=== PATIENT | female | born 1955 | race Caucasian/White ===

== ENCOUNTER 2021-02-22 14:49 | Outpatient (REF) | payer MEDICARE, OTHER, SELFPAY ==
--- NOTE | ~2021-02-22 | MR_ITS ---
EXAMINATION: MR LUMBAR SPINE WITHOUT CONTRAST CLINICAL INFORMATION: Lower back pain. COMPARISON: None. TECHNIQUE: MRI of the lumbar spine was obtained using routine sequences without contrast. FINDINGS: VERTEBRAL BODIES AND PARASPINAL STRUCTURES: The lumbar lordosis is maintained. Anterior loss of superior endplate vertebral body height at T12 without associated marrow edema. Findings are consistent with a chronic compression deformity. No additional loss of vertebral body height. Loss of intervertebral disc height with disc desiccation at L2-L5. No marrow edema to suggest acute osseous injury. The visualized paraspinal soft tissues are unremarkable. CONUS MEDULLARIS AND CAUDA EQUINA: Normal, terminating at the level of the inferior endplate of L1. SPINAL LEVELS: T12-L1: Minimal disc bulge with left-sided annular fissuring. No significant central canal or neural foraminal stenosis. L1-L2: Shallow left subarticular disc protrusion with posterior annular fissuring. Bilateral facet arthropathy. Minimal left neural foraminal stenosis. L2-L3: Broad-based disc bulge with bilateral facet arthropathy and thickening of the ligamentum flavum causing [id number] bilateral neural foraminal stenosis. L3-L4: Minimal broad-based disc bulge with bilateral facet arthropathy and thickening of the ligamentum flavum causing mild bilateral neural foraminal stenosis. L4-L5: Broad-based disc bulge with a shallow posterior central disc protrusion and posterior annular fissuring. Bilateral facet arthropathy and thickening of the ligamentum flavum. Mild bilateral neural foraminal stenosis. L5-S1: No significant disc bulge. No central canal or neural foraminal stenosis. MR/MR lumbar spine wo con IMPRESSION: 1. Chronic compression deformity of T12. No marrow edema to suggest acute osseous injury. 2. Shallow left subarticular disc protrusion at L1-L2 with annular fissuring and bilateral facet arthropathy causing minimal left neural foraminal stenosis. 3. Broad-based disc bulge and bilateral facet arthropathy at L2-L3 causing [id number] bilateral neural foraminal stenosis. 4. Minimal disc bulge at L3-L4 bilateral facet arthropathy and thickening of the ligamentum flavum causing mild bilateral neural foraminal stenosis. 5. Broad-based disc bulge at L4-L5 with a shallow posterior central disc protrusion and annular fissuring as well as bilateral facet arthropathy and thickening of the ligamentum flavum causing mild bilateral neural foraminal stenosis.
== END 2021-02-22 14:50 | disposition home or self-care (01) ==
LOC: HO.MRI 14:49
PROVIDERS: Visit Provider Physician Assistant
DX: M54.50 Low back pain, unspecified (principal)
CPT/HCPCS: 72148

== ENCOUNTER 2021-04-26 23:53 | Emergency (ER) | payer MEDICARE, OTHER, SELFPAY ==
--- NOTE | ~2021-04-26 | XR_ITS ---
EXAMINATION: XR CHEST CLINICAL INFORMATION: Chest pain COMPARISON: 02.10.2016 TECHNIQUE: Frontal view of the chest was obtained. FINDINGS: Normal symmetric lung volumes. No parenchymal consolidation. No pleural effusion. No pneumothorax. Cardiomediastinal silhouette and pulmonary vascularity are within normal limits. Aorta is atherosclerotic. No acute osseous abnormalities. XR/XR chest 1V IMPRESSION: No acute findings.
[2021-04-26 23:55] VITALS: BP 142/82; PULSE 68; RESP 18; TEMP 36.3; O2SAT 99; BMI 22.1
--- NOTE | 2021-04-26 23:59 | ECG_ITS ---
Test Reason : CHEST PAIN Blood Pressure : / mmHG Vent. Rate : 065 BPM Atrial Rate : 065 BPM P-R Int : 146 ms QRS Dur : 066 ms QT Int : 372 ms P-R-T Axes : 049 020 108 degrees QTc Int : 386 ms Normal sinus rhythm Cannot rule out Anterior infarct , age undetermined T wave abnormality, consider lateral ischemia Abnormal ECG When compared with ECG of 11-FEB-2016 00:48, T wave inversion now evident in Lateral leads QT has shortened Referred By: Generic ED Physician Electronically Signed By:DAI SWAIN MD
[2021-04-27] VITALS: BP 142/54; PULSE 67; RESP 16; O2SAT 97
--- NOTE | 2021-04-27 | ECG_ITS ---
Test Reason : REPEAT Blood Pressure : / mmHG Vent. Rate : 066 BPM Atrial Rate : 066 BPM P-R Int : 148 ms QRS Dur : 068 ms QT Int : 408 ms P-R-T Axes : 051 025 103 degrees QTc Int : 427 ms Normal sinus rhythm Nonspecific T wave abnormality Abnormal ECG When compared with ECG of 27-APR-2021 00:03, No significant change was found Referred By: Loren Bal Electronically Signed By:DAI SWAIN MD
[2021-04-27 00:22] LABS: Basophils Absolute Auto 0.1 X10*3/uL (0.0-0.2); Basophils Percent Auto 1.2 % (0-2); Eosinophils Absolute Auto 0.2 X10*3/uL (0.0-0.4); Eosinophils Percent Auto 3.2 % (0-4); Hematocrit 42.4 % (37.0-47.0); Hemoglobin 14.6 g/dl (12.0-16.0); Imm Gran Abs Auto 0.03 X10*3/uL (0.00-0.03); Imm Gran Pct Auto 0.4 % (0.0-0.4); Lymphocytes Absolute Auto 2.3 X10*3/uL (1.2-4.9); Lymphocytes Percent Auto 31.1 % (20-40); MANUAL DIFF FLAG NO; Mean Corpuscular HGB Conc 34.4 g/dl (31.0-35.0); Mean Corpuscular Hemoglobin 30.2 pg (27.0-33.0); Mean Corpuscular Volume 87.6 fL (80.0-98.0); Mean Platelet Volume 8.8 fL (9.4-12.3); Monocytes Absolute Auto 0.8 X10*3/uL (0.1-1.2); Monocytes Percent Auto 11.2 % (2-11); Neutrophils Absolute Auto 3.8 x10*3/uL (2.0-8.3); Neutrophils Percent Auto 52.9 % (45-73); Platelet Count 271 X10*3/uL (160-400); Red Blood Count 4.84 X10*6/uL (4.20-5.50); Red Cell Distribution Width 12.5 % (11.0-16.0); White Blood Count 7.3 X10*3/uL (4.8-10.8)
[2021-04-27 00:36] LABS: Anion Gap 14 (12-20); Blood Urea Nitrogen 16 mg/dL (9-16); Carbon Dioxide 27 mmol/L (22-29); Chloride 103 mmol/L (96-108); Creatinine Clr Calc Pharmacy 55.8; Estimated Glomerular Filt Rate > 60; Glucose Random 120 mg/dL (60-115); Potassium 3.6 mmol/L (3.3-5.1); Sodium 140 mmol/L (135-145)
[2021-04-27 00:44] LABS: Troponin-I High Sensitivity < 3.5 ng/L (<3.5-17.0)
[2021-04-27 00:58] VITALS: PULSE 63
[2021-04-27 03:25] LABS: Troponin-I High Sensitivity < 3.5 ng/L (<3.5-17.0)
[2021-04-27 03:27] VITALS: BP 130/78; PULSE 56; RESP 16; TEMP 36.7; O2SAT 95
[2021-04-27 06:30] VITALS: BP 123/73; PULSE 65; RESP 14; TEMP 36.7; O2SAT 95
--- NOTE | 2021-04-27 06:35 | ED.CHESTPAIN ---
HPI - Chest Pain General Chief Complaint: Chest Pain Stated Complaint: Chest discomfort Time Seen by Provider: 04/27/21 06:35 Source: patient Mode of arrival: ambulatory Limitations: no limitations History of Present Illness MD complaint: chest pain Onset (ago): day(s) (last night 11pm) Timing of current episode: constant Prior episodes: No Onset: during rest Pain location: substernal Pain radiation: neck Severity: moderate Quality: other (pressure) Relieving factors: nothing Exacerbating factors: nothing Associated symptoms: nausea Treatment prior to arrival: none Related Data Allergies Allergy/AdvReac Type Severity Reaction Status Date / Time meperidine [From DEMEROL] Allergy Unknown VOMIT Unverified 01/27/20 19:09 Review of Systems Review of Systems: Constitutional : No Weight loss, No Fever, No Chills ENT/Mouth : No sore throat, No Rhinorrhea Eyes: No Eye Pain, No Swelling Cardiovascular : pos Chest Pain, no SOB, no Dyspnea on Exertion, No Orthopnea, No Edema, No Palpitations Respiratory : No Cough, No Sputum Gastrointestinal : pos Nausea, No Vomiting, No Diarrhea, No abdominal Pain, No Hematochezia, No Melena Genitourinary : No Dysuria, No Urinary Frequency Musculoskeletal : No joint pain, No Myalgias, No Joint Swelling Skin : No Skin Lesions, No rash Neuro : No Weakness, No Numbness, No Dizziness, No Headache Psych : No Anxiety/Panic, No Depression Heme/Lymph: No Bruising, No Lymphadenopathy Endocrine : No Polyuria, No Polydipsia All other systems reviewed and are negative [facility] Past Medical History Medical History Neuropathy Social History Social History Alcohol intake: unknown Patient Tobacco Use Status: Never used Tobacco Use of substances other than those prescribed or required for medical reasons: Unknown Advance Directives: No Advance Directives Information Provided: No Physical Exam Vital Signs: Vital Signs: Last Vital Signs Temp 98.0 F 04/27/21 06:30 Pulse 66 04/27/21 08:09 Resp 16 04/27/21 08:09 BP 117/75 04/27/21 08:09 Pulse Ox 96 04/27/21 08:09 BMI result Body Mass Index 22.1 Appearance: Alert. Oriented X3. No acute distress. Eyes: Pupils equal, round and reactive to light. ENT: Pharynx normal. Neck: Normal inspection. Neck supple. CVS: Normal heart rate and rhythm. Pulses normal. Respiratory: No respiratory distress. Breath sounds normal. Abdomen: Soft and non-tender. Skin: Skin warm and dry. Normal skin color. Normal skin turgor. Extremities: No lower extremity edema. No calf ttp Neuro: Oriented X 3. No motor deficit. No sensory deficit. Course Course Course Narrative: ddimer negative, trop negative x 3. nonspecific EKG after deeper review of old EKGs EKG unchanged - after review of EKgs patient did have t wave inversions and nonspecific as well as flattened t waves noted in 2016 she has a negative ddimer 3 negative troponins - doubt ACS at this time. feels better stable for DC MDM - Chest Pain MDM Narrative Medical decision making narrative: 65 yo female with hx of neuropathy non-smoker here with c/o onset of substernal chest pressure onset at 11pm last night while at rest felt nauseated pain radiated to her jaw at this time will obtain troponin x 2, ddimer, EKG x 2, has no ACS risk factors does not know of any family history. At this time she has no risk factors for PE. No abdominal pain. May need to discuss with cardiology given new T wave inversions and chest pain Lab Data Result diagrams: 04/27/21 00:10 04/27/21 00:10 Labs: Lab Results 04/27/21 04/27/21 04/27/21 Range/Units 00:10 00:10 00:10 WBC 7.3 (4.8-10.8) X10*3/uL RBC 4.84 (4.20-5.50) X10*6/uL Hgb 14.6 (12.0-16.0) g/dl Hct 42.4 (37.0-47.0) % MCV 87.6 (80.0-98.0) fL MCH 30.2 (27.0-33.0) pg MCHC 34.4 (31.0-35.0) g/dl RDW 12.5 (11.0-16.0) % Plt Count 271 (160-400) X10*3/uL MPV 8.8 L (9.4-12.3) fL Immature Gran % (Auto) 0.4 (0.0-0.4) % Neut % (Auto) 52.9 (45-73) % Lymph % (Auto) 31.1 (20-40) % Jewell % (Auto) 11.2 H (2-11) % Eos % (Auto) 3.2 (0-4) % Baso % (Auto) 1.2 (0-2) % Lymph # (Auto) 2.3 (1.2-4.9) X10*3/uL Jewell # (Auto) 0.8 (0.1-1.2) X10*3/uL Eos # (Auto) 0.2 (0.0-0.4) X10*3/uL Baso # (Auto) 0.1 (0.0-0.2) X10*3/uL Abs Immat Gran (auto) 0.03 (0.00-0.03) X10*3/uL Absolute Neuts (auto) 3.8 (2.0-8.3) x10*3/uL Absolute Nucleated RBC 0.000 (0.0-0.012) X10*3/uL Nucleated RBC % (auto) 0.0 (0.0-0.2) /100WBC D-Dimer High Sensitivty NG/ML Sodium 140 (135-145) mmol/L Potassium 3.6 (3.3-5.1) mmol/L Chloride 103 (96-108) mmol/L Carbon Dioxide 27 (22-29) mmol/L Anion Gap 14 (12-20) BUN 16 (9-16) mg/dL Creatinine 0.82 (0.5-1.4) mg/dL Estim Creat Clear Calc 55.8 Estimated GFR > 60 Random Glucose 120 H (60-115) mg/dL Calcium 10.0 (8.4-10.2) mg/dL Troponin I High Sens < 3.5 (<3.5-17.0) ng/L COVID-19 (VILLA) (Negative) COVID-19 Clin Com 04/27/21 04/27/21 04/27/21 Range/Units 02:53 07:16 07:16 WBC (4.8-10.8) X10*3/uL RBC (4.20-5.50) X10*6/uL Hgb (12.0-16.0) g/dl Hct (37.0-47.0) % MCV (80.0-98.0) fL MCH (27.0-33.0) pg MCHC (31.0-35.0) g/dl RDW (11.0-16.0) % Plt Count (160-400) X10*3/uL MPV (9.4-12.3) fL Immature Gran % (Auto) (0.0-0.4) % Neut % (Auto) (45-73) % Lymph % (Auto) (20-40) % Jewell % (Auto) (2-11) % Eos % (Auto) (0-4) % Baso % (Auto) (0-2) % Lymph # (Auto) (1.2-4.9) X10*3/uL Jewell # (Auto) (0.1-1.2) X10*3/uL Eos # (Auto) (0.0-0.4) X10*3/uL Baso # (Auto) (0.0-0.2) X10*3/uL Abs Immat Gran (auto) (0.00-0.03) X10*3/uL Absolute Neuts (auto) (2.0-8.3) x10*3/uL Absolute Nucleated RBC (0.0-0.012) X10*3/uL Nucleated RBC % (auto) (0.0-0.2) /100WBC D-Dimer High Sensitivty < 150 NG/ML Sodium (135-145) mmol/L Potassium (3.3-5.1) mmol/L Chloride (96-108) mmol/L Carbon Dioxide (22-29) mmol/L Anion Gap (12-20) BUN (9-16) mg/dL Creatinine (0.5-1.4) mg/dL Estim Creat Clear Calc Estimated GFR Random Glucose (60-115) mg/dL Calcium (8.4-10.2) mg/dL Troponin I High Sens < 3.5 < 3.5 (<3.5-17.0) ng/L COVID-19 (VILLA) (Negative) COVID-19 Clin Com 04/27/21 Range/Units 07:32 WBC (4.8-10.8) X10*3/uL RBC (4.20-5.50) X10*6/uL Hgb (12.0-16.0) g/dl Hct (37.0-47.0) % MCV (80.0-98.0) fL MCH (27.0-33.0) pg MCHC (31.0-35.0) g/dl RDW (11.0-16.0) % Plt Count (160-400) X10*3/uL MPV (9.4-12.3) fL Immature Gran % (Auto) (0.0-0.4) % Neut % (Auto) (45-73) % Lymph % (Auto) (20-40) % Jewell % (Auto) (2-11) % Eos % (Auto) (0-4) % Baso % (Auto) (0-2) % Lymph # (Auto) (1.2-4.9) X10*3/uL Jewell # (Auto) (0.1-1.2) X10*3/uL Eos # (Auto) (0.0-0.4) X10*3/uL Baso # (Auto) (0.0-0.2) X10*3/uL Abs Immat Gran (auto) (0.00-0.03) X10*3/uL Absolute Neuts (auto) (2.0-8.3) x10*3/uL Absolute Nucleated RBC (0.0-0.012) X10*3/uL Nucleated RBC % (auto) (0.0-0.2) /100WBC D-Dimer High Sensitivty NG/ML Sodium (135-145) mmol/L Potassium (3.3-5.1) mmol/L Chloride (96-108) mmol/L Carbon Dioxide (22-29) mmol/L Anion Gap (12-20) BUN (9-16) mg/dL Creatinine (0.5-1.4) mg/dL Estim Creat Clear Calc Estimated GFR Random Glucose (60-115) mg/dL Calcium (8.4-10.2) mg/dL Troponin I High Sens (<3.5-17.0) ng/L COVID-19 (VILLA) Negative (Negative) COVID-19 Clin Com See Note ECG Data ECG #1: Attestation: I personally reviewed and interpreted this ECG as follows: ECG interpretation date: 04/27/21 ECG interpretation time: 06:36 Interpretation: Rate: 65 Rhythm: NSR Tropic: normal Normal P waves. Normal DARIANA. Normal QRS complex. ST T wave : no GRAYSON, inverted I and aVL, nonspecific anterior leads qTC: normal prior studies: changed from 2016 The study has been interpreted contemporaneously by me. Rate: 66 Rhythm: NSR Tropic: normal Normal P waves. Normal DARIANA. Normal QRS complex. ST T wave : inverted lateral leads, anterior leads no GRAYSON qTC: normal prior studies: no change The study has been interpreted contemporaneously by me. . Discharge Plan Discharge Clinical Impression: Chest pain Qualifiers: Chest pain type: precordial pain Qualified Code(s): R07.2 - Precordial pain Patient Disposition: Home, Self-Care Instructions: Chest Pain (ED) Additional Instructions: return to ED for any worsening symptoms or concerns please follow up with your doctor for outpatient stress test given chest pain Referrals: Pillo Green MD [Primary Care Provider] - 3 days
[2021-04-27] MEDS: Lidocaine HCl Viscous 2 % 15 ML SOLUTION MUCOUS MEM (07:25)
[2021-04-27] MEDS: ondansetron HCL 4 MG/2 ML VIAL IVPUSH (07:25)
[2021-04-27 07:42] LABS: D Dimer High Sensitivity < 150 NG/ML
[2021-04-27 07:47] LABS: Troponin-I High Sensitivity < 3.5 ng/L (<3.5-17.0)
[2021-04-27 07:59] LABS: COVID-19 Test Negative (Negative); IDNOW Serial# 55D5AD1C
[2021-04-27 08:09] VITALS: BP 117/75; PULSE 66; RESP 16; O2SAT 96
[2021-04-27] MEDS: Morphine Sulfate 2 MG/ML CARTRIDGE IVPUSH (08:09)
[2021-04-27] MEDS: 0.9 % Sodium Chloride 1,000 ML 999 ML IV (08:09)
[2021-04-27 08:45] LABS: Magnesium 2.1 mg/dL (1.6-2.6)
== END 2021-04-27 08:52 | disposition home or self-care (01) ==
PROVIDERS: Emergency Provider Emergency Medicine; PCP Internal Medicine
DX: R07.2 Precordial pain (principal); R07.9 Chest pain, unspecified; M54.2 Cervicalgia; Z20.822 Contact with and (suspected) exposure to COVID-19; Z79.899 Other long term (current) drug therapy
CPT/HCPCS: 36415; 71045; 80048; 83735; 84484; 85025; 85379; 87635; 93005; 96361; 96374; 96375; 99285; J2270; J2405

== ENCOUNTER 2021-12-11 14:15 | Emergency (ER) | payer MEDICARE, SELFPAY ==
--- NOTE | ~2021-12-11 | XR_ITS ---
EXAMINATION: XR CHEST CLINICAL INFORMATION: Sternal pain and shortness of breath COMPARISON: Previous chest x-ray April 2021 TECHNIQUE: 2 views of the chest were obtained. FINDINGS: The cardiac and mediastinal contours are normal. The lungs are clear. There is no pleural effusion or pneumothorax. There is a sternal fracture appreciated on the lateral view. This is of uncertain age. No previous lateral chest x-ray is available for comparison. There is loss of height of several thoracic vertebral body suggestive of mild old compression fractures. There are postsurgical changes to the cervical spine. XR/XR chest 2V IMPRESSION: Sternal fracture of uncertain age. This could be better assessed with CT scan if clinically indicated. No evidence for acute disease in the chest. Multiple old thoracic vertebral body compression fractures.
--- NOTE | ~2021-12-11 | CT_ITS ---
EXAMINATION: CT CHEST WITHOUT CONTRAST CLINICAL INFORMATION: Sternal pain. Rule out sternal fracture. COMPARISON: None TECHNIQUE: Multidetector volumetric CT imaging of the chest was done. Axial MIP volume rendering provided. Sagittal and coronal reformatted images were obtained. This CT examination was performed using dose optimization techniques as appropriate, variously including the following: *Automated exposure control *Adjustment of mA and/or kV according to patient size (this includes techniques or standardized protocols for targeted exams where dose is matched to indication/reason for exam; i.e. extremities or head) *Use of iterative reconstruction technique DLP: 205 mGy-cm FINDINGS: DENTAL HYGIENIST: Cholecystectomy clips. Clear lungs. LUNGS: Reticular, linear platelike bands of atelectasis are evident in the bilateral lower lobes at the bases as well as the right middle lobe and lingula, consistent with pleural parenchymal scarring. No focal airspace consolidation. Central airways are clear. No suspicious noncalcified pulmonary nodules are identified. A few calcified granulomas are identified. MEDIASTINUM: The mediastinum is normal. Heart is normal in size. No hematoma. Thoracic aorta is normal in caliber. No adenopathy. Thyroid gland is unremarkable. PLEURA: There is no pleural effusion. No pleural mass or thickening. AXILLA: No lymphadenopathy. UPPER ABDOMEN: The right hepatic flexure is interposed between the liver and the right hemidiaphragm. Clinical statement clips are noted. There is dilatation of the common bile duct to 1.5 cm. Splenic granulomas are noted. No acute abnormalities in the upper abdomen. Colonic diverticula are noted. OSSEOUS STRUCTURES: There is a transverse fracture of the sternum between the level of the third and fourth ribs anteriorly. This fracture is subacute to chronic with bridging bone. Incomplete osseous remodeling. No additional fractures are identified in this region. There aren't old healed fractures of the left third and fourth ribs anterolaterally. Anterior wedge compression deformity of the T5 vertebral body appears chronic, involving the inferior endplate with 50 percent loss of vertebral body height. There are chronic superior endplate compression deformity is also evident at the T12 level with 25 percent loss of vertebral body height. No acute vertebral body fractures are identified. Hyperkyphosis is present in the lower lumbar spine. Mild multilevel degenerative spondylosis. CT/CT chest wo con IMPRESSION: 1. The sternal fracture is subacute to chronic. No acute sternal fractures are identified. Old healed left-sided rib fractures are also noted. 2. Chronic vertebral compression fractures at the T5 and T12 levels. No acute vertebral body fractures. 3. No acute pulmonary findings. 4. Interposition of the hepatic flexure between the right hemidiaphragm and the liver. This is typically incidental and of no clinical significance but can be symptomatic (Chilaiditi syndrome). Fleischner guidelines were followed.
[2021-12-11 15:52] VITALS: BP 132/77; PULSE 77; RESP 16; TEMP 36; O2SAT 98
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
[2021-12-11 22:39] VITALS: BP 146/89; PULSE 78; RESP 16; TEMP 36; O2SAT 97
[2021-12-11] MEDS: oxyCODONE HCl Immed Release 5 MG TABLET PO (22:48)
== END 2021-12-11 22:51 | disposition home or self-care (01) ==
PROVIDERS: Emergency Provider Internal Medicine; PCP Internal Medicine
DX: S13.4XXA Sprain of ligaments of cervical spine, initial encounter (principal); R07.9 Chest pain, unspecified; V47.1XXA Car passenger injured in collision with fixed or stationary object in nontraffic accident, initial encounter; Y93.89 Activity, other specified; Y92.410 Unspecified street and highway as the place of occurrence of the external cause; Y99.9 Unspecified external cause status; S22.20XD Unspecified fracture of sternum, subsequent encounter for fracture with routine healing; W19.XXXD Unspecified fall, subsequent encounter
CPT/HCPCS: 71046; 71250; 99284